=== PATIENT | female | born 1955 | race Hispanic/Latino ===

== ENCOUNTER 2017-05-05 10:21 | Emergency (ER) | payer MEDICARE ==
[~2017-05-05] VITALS: Ht 144.8 cm; Wt 44.0 kg
[~2017-05-05 10:21] MED LIST: ANTIVERT25 MG PO; ASPIRIN325 MG PO; CLONAZEPAM0.5 MG PO; FENOFIBRATE145 MG PO; LEVOTHYROXINE50 MCG PO; LOSARTAN POTASS25 MG PO; METOPROLOL SUCC50 MG PO; OMEPRAZOLE40 MG PO; PANTOPRAZOLE SO40 MG PO; PRAVASTATIN SOD40 MG PO; SIMVASTATIN40 MG PO
[2017-05-05] MEDS ORDERED: DEXTROSE 50% SYRINGE 50 ML IV ONE (12:02)
[2017-05-05] MEDS ORDERED: ASPIRIN 81 MG CHEW TAB PO ONE (13:45)
[2017-05-05 14:10] LABS: BASOPHILS % 0.5 % (0.0-1.0); EOSINOPHILS % 0.2 % (0.0-6.0); HEMATOCRIT 33.8 % (34.2-44.1); HEMOGLOBIN 11.5 g/dL (12.0-16.0); LYMPHOCYTES # (AUTO) 1.7 (1.0-3.2); LYMPHOCYTES % 29.3 % (18.0-39.1); MEAN CORPUSCULAR HEMOGLOBIN 30.4 pg (28-32); MEAN CORPUSCULAR VOLUME 89.4 fL (81-99); MONOCYTES # (AUTO) 0.3 (0.2-0.8); MONOCYTES % 4.2 % (4.4-11.3); NEUTROPHILS # (AUTO) 3.9 (2.1-6.9); NEUTROPHILS % 65.3 % (38.7-80.0); PLATELET COUNT 308 x10e3/uL (140-360); RED BLOOD COUNT 3.78 x10e6/uL (3.6-5.1); RED CELL DISTRIBUTION WIDTH 13.6 % (11.7-14.4)
[2017-05-05 14:19] LABS: INR 1.03; PROTHROMBIN TIME 12.7 seconds (11.9-14.5)
[2017-05-05 14:20] LABS: PARTIAL THROMBOPLASTIN TIME 27.7 seconds (23.8-35.5)
[2017-05-05 14:26] LABS: ALANINE AMINOTRANSFERASE 16 IU/L (0-55); ALBUMIN 4.1 g/dL (3.5-5.0); ALBUMIN/GLOBULIN RATIO 1.1 (0.8-2.0); ALKALINE PHOSPHATASE 100 IU/L (40-150); ANION GAP 12.8 mmol/L (8-16); BLOOD UREA NITROGEN 14 mg/dL (7-26); BUN/CREATININE RATIO 19 (6-25); CALCIUM 9.5 mg/dL (8.4-10.2); CARBON DIOXIDE 25 mmol/L (22-29); CHLORIDE 108 mmol/L (98-107); CREATINE KINASE 76 IU/L (29-168); CREATININE, SERUM 0.72 mg/dL (0.57-1.11); EST GLOMERULAR FILTRATION RATE > 60 ML/MIN (60-); GLUCOSE 94 mg/dL (74-118); MAGNESIUM 1.8 MG/DL (1.3-2.1); POTASSIUM 3.8 mmol/L (3.5-5.1); SODIUM 142 mmol/L (136-145)
--- NOTE | 2017-05-05 14:29 | Diagnostic Imaging Report ---
PROCEDURE: A single AP view of the chest. COMPARISON: Portable chest 11/24/2015. INDICATIONS: SYNCOPE FINDINGS: Lines/tubes: None. Lungs: The lungs are well inflated and clear. There is no evidence of pneumonia or pulmonary edema. Pleura: There is no pleural effusion or pneumothorax. Heart and mediastinum: The heart and the mediastinum are unremarkable. Bones: No acute bony abnormality. Degenerative changes of the thoracic spine. IMPRESSION: No acute radiographic abnormality. Dictated by: Alok Trevino M.D. on 05/05/2017 at 14:28 Electronically approved by: Alok Trevino M.D. on 05/05/2017 at 14:28
--- NOTE | 2017-05-05 16:39 | Diagnostic Imaging Report ---
Examination: CT BRAIN WITHOUT CONTRAST History:Right arm and ear tightness. Comparison studies:Head CT performed November 24, 2015 Technique: Axial images were obtained from the skull base to the vertex. Coronal and sagittal images reconstructed from the axial data. Intravenous contrast: None Findings: Scalp: No abnormalities. Bones: No fractures, blastic or lytic lesions. Brain sulci: Unchanged mild volume loss for age. Ventricles: Normal in size and configuration. No hydrocephalus. Extra-axial space: No abnormalities. Parenchyma: No abnormal densities. No masses, hemorrhage, or acute or chronic cortical based vascular insults. Sellar/suprasellar region: No abnormalities. Craniocervical junction: Patent foramen magnum. No Chiari one malformation. Incidental findings: None. Impression: No new or acute intracranial abnormalities. No change from prior head CT performed November 24, 2015. Signed by: Dr. Chaya Meraz M.D. on 05/05/2017 4:35 PM
[2017-05-05 19:22] LABS: LYMPHOCYTES % (MANUAL) 22 % (19-48); MONOCYTES % (MANUAL) 2 % (3.4-9.0); NEUTROPHILS % (MANUAL) 75 % (40-74); PLATELET ESTIMATE ADEQUATE; PLATELET MORPHOLOGY COMMENT NORMAL; RBC MORPHOLOGY COMMENT NORMAL
[2017-05-05 20:12] VITALS: BP 170/71
== END 2017-05-05 20:23 | disposition home or self-care (01) ==
LOC: ER 10:21
DX: R55 Syncope and collapse (principal)
CPT/HCPCS: 36415; 70450; 71045; 80053; 82550; 82553; 83735; 83880; 84484; 85025; 85610; 85730; 93005; 99284; J7799

== ENCOUNTER 2019-10-09 15:16 | Emergency (ER) | payer MEDICARE ==
[~2019-10-09] VITALS: Ht 144.8 cm; Wt 49.9 kg
--- NOTE | 2019-10-09 15:54 | Emergency Department Note ---
History of Present Illnes History of Present Illness History of Present Illness This is a 63 year old female . Historian: Patient Arrival Mode: Car Director Of Recruitment And Admissions Required: No Onset (how long ago): day(s) (3 days of weakness, tired, over worked no cp mild sob no fever no chills no loss of taste or smell no exposure to COVID pos) Location: Pt is concerned about her Oxygen levels Radiation: Reports non-radiation Severity: mild Onset quality: gradual Duration (how long): day(s) (3) Timing of current episode: constant Progression: unchanged Chronicity: new Context: Denies recent illness, Denies recent surgery, Denies recent immobilization, Denies recent travel, Denies trauma/injury, Denies new medications, Denies hx of DVT/PE, Denies non-compliance w/ medications, Denies other Relieving factors: none Exacerbating factors: none Associated symptoms: Reports denies other symptoms Treatments prior to arrival: none Risk factors: no hx of DVT or PE no recent travel or trips no leg swelling Past Medical/Family History Physician Review I have reviewed the patient's past medical and family history. Any updates have been documented here. Past Medical History Recent Fever: No Clinical Suspicion of Infectio: No New/Unexplained Change in Ment: No Past Medical History: Hypertension Other Medical History: HYPERLIPIDEMIA ANEMIA FATTY LIVER ARTHITHEROSIS Other Surgery: Social History Smoking Cessation: Never Smoker Alcohol Use: None Any Illegal Drug Use: No Other Last Tetanus: OOD Review of Systems Review of Systems Constitutional: Denies diaphoresis, Denies fever, Denies malaise Cardiovascular: Reports no symptoms Respiratory: Reports as per HPI Review of other systems: All other systems negative Physical Exam Related Data Allergies: Coded Allergies: codeine (Verified Allergy, Unknown, 05/05/17) enalapril (Verified Allergy, Unknown, 05/05/17) metoclopramide (Verified Allergy, Unknown, WEAKNESS, ANXIETY, 05/05/17) shellfish derived (Verified Allergy, Unknown, 05/05/17) Vital signs reviewed: Yes Physical Exam CONSTITUTIONAL Constitutional: Present well-developed HENT HENT: Present normocephalic EYES Eyes: Reports conjunctivae normal NECK Neck: Present supple PULMONARY Pulmonary: Present breath sounds normal CARDIOVASCULAR Cardiovascular: Present regular rhythm GASTROINTESTINAL Abdominal: Present soft GENITOURINARY SKIN Skin: Present warm MUSCULOSKELETAL Musculoskeletal: Absent edema NEUROLOGICAL Neurological: Present alert, Present oriented x 3 PSYCHOLOGICAL Psychological: Present mood/affect normal Results Laboratory Laboratory CBC CMP Normal D Dimer Trop Normal Lab results reviewed: Yes Imaging Imaging results reviewed: Yes Impressions CXRAY negative Procedures 12 Lead ECG Interpretation ECG Interpretation : ECG: ECG 1 Director Of Recruitment And Admissions: Interpreted by ED physician Date: Oct 09, 2019 Time: 15:42 Prior ECG tracings: reviewed Rhythm: sinus rhythm Rate: normal QRS axis: normal ST segments normal: Yes T waves normal: Yes Clinical Impression: normal ECG Clinical Decision Tools HEART Score HEART Score: HEART Score Response (Comments) Value History Slightly suspicious 0 EKG Normal 0 Age 45 - 65 1 Risk factors 1 or 2 risk factors 1 Troponin 1-3x normal limit Total 2 Assessment & Plan Medical Decision Making MDM PE, ACS, COVID, CHF, Anemia, Thyroid diseas Reassessment Reassessment Pt felt the same 3 days of symptoms Assessment & Plan Final Impression: (1) Dyspnea Depart Disposition: HOME, SELF-halfway Meds Reported Medications Meclizine Hcl (ANTIVERT) 25 Mg Tablet, 25 MG PO Q8H 11/24/15 Aspirin (ASPIRIN) 325 Mg Tablet, 325 MG PO DAILY, TAB 11/24/15 Levothyroxine Sodium (LEVOTHYROXINE SODIUM) 50 Mcg Tablet, 50 MCG PO DAILY, #30 TAB 11/24/15 Pravastatin Sodium (PRAVASTATIN SODIUM) 40 Mg Tablet, 40 MG PO DAILY 11/24/15 Fenofibrate Nanocrystallized (FENOFIBRATE) 145 Mg Tablet, 160 MG PO DAILY 11/24/15 Pantoprazole Sodium* (PROTONIX) 40 Mg Tablet.dr, 40 MG PO ACB, TAB 11/24/15 Omeprazole (OMEPRAZOLE) 40 Mg Capsule.dr, 40 MG PO DAILY 04/01/14 Simvastatin (SIMVASTATIN) 40 Mg Tablet, 40 MG PO DAILY, #30 TAB 04/01/14 Clonazepam (CLONAZEPAM) 0.5 Mg Tablet, 0.5 MG PO PRN for ANXIETY, TAB 04/01/14 Metoprolol Succinate (METOPROLOL SUCCINATE) 50 Mg Tab.er.24h, 50 MG PO DAILY, MG 04/01/14 Losartan Potassium (LOSARTAN POTASSIUM) 25 Mg Tablet, 50 MG PO HS 04/01/14 PETER VERONICA MD Oct 09, 2019 15:46
--- NOTE | 2019-10-09 17:27 | Diagnostic Imaging Report ---
EXAMINATION: CXR 2 VIEW - HOPD INDICATION: Shortness of breath COMPARISON: None FINDINGS: PA and lateral views TUBES and LINES: None. . LUNGS/PLEURA: Lungs are well inflated. There is no evidence of pneumonia or pulmonary edema.. There is no pleural effusion or pneumothorax. HEART AND MEDIASTINUM: The cardiomediastinal silhouette is unremarkable. BONES AND SOFT TISSUES: No acute osseous lesion. Soft tissues are unremarkable. UPPER ABDOMEN: No free air under the diaphragm. IMPRESSION: No acute thoracic abnormality. Signed by: Drake Sargent MD on 10/09/2019 5:24 PM
[2019-10-09 19:30] VITALS: BP 160/63
== END 2019-10-09 17:57 | disposition home or self-care (01) ==
LOC: FSED 16:10
DX: R06.00 Dyspnea, unspecified (principal); R53.1 Weakness; I10 Essential (primary) hypertension; E78.5 Hyperlipidemia, unspecified; D64.9 Anemia, unspecified
CPT/HCPCS: 71046; 80053; 84484; 85025; 85379; 93005; 99283

== ENCOUNTER 2020-12-27 14:19 | Emergency (ER) | payer MEDICARE ==
[~2020-12-27] VITALS: Ht 144.8 cm; Wt 49.9 kg
== END 2020-12-27 16:21 | disposition home or self-care (01) ==
LOC: FSED 14:51
DX: S20.222A Contusion of left back wall of thorax, initial encounter (principal); M79.10 Myalgia, unspecified site; W22.01XA Walked into wall, initial encounter; Y93.01 Activity, walking, marching and hiking; Y92.008 Other place in unspecified non-institutional (private) residence as the place of occurrence of the external cause; H83.2X1 Labyrinthine dysfunction, right ear; I10 Essential (primary) hypertension; E78.5 Hyperlipidemia, unspecified; E03.9 Hypothyroidism, unspecified; I25.10 Atherosclerotic heart disease of native coronary artery without angina pectoris; F41.9 Anxiety disorder, unspecified
CPT/HCPCS: 99283

== ENCOUNTER 2021-03-05 21:04 | Emergency (ER) | payer MEDICARE ==
[~2021-03-05] VITALS: Ht 144.8 cm; Wt 46.7 kg
[2021-03-05] MEDS ORDERED: AUGMENTIN 875-1 EACH PO (21:30)
[2021-03-05 21:35] VITALS: BP 199/110
== END 2021-03-05 21:35 | disposition home or self-care (01) ==
LOC: FSED 21:30
DX: R30.0 Dysuria (principal); N39.0 Urinary tract infection, site not specified; R00.2 Palpitations; I10 Essential (primary) hypertension; I25.10 Atherosclerotic heart disease of native coronary artery without angina pectoris; E78.5 Hyperlipidemia, unspecified; F41.9 Anxiety disorder, unspecified; D64.9 Anemia, unspecified
CPT/HCPCS: 81003; 99282

== ENCOUNTER → 2021-06-25 | Outpatient (CLI) | payer MEDICARE ==
[~2021-06-25] MED LIST changes: +AUGMENTIN 875-1 EACH PO
== END ==
LOC: US 14:19
PROVIDERS: ATTEND Nurse Practitioner Gerontology
DX: N30.01 Acute cystitis with hematuria (principal)
CPT/HCPCS: 76770

== ENCOUNTER 2021-12-17 18:11 | Emergency (ER) | payer MEDICARE ==
[~2021-12-17] VITALS: Ht 144.8 cm; Wt 49.9 kg
[~2021-12-17 18:11] MED LIST changes: +BACTRIM DS TAB1 EACH PO; +CEPHALEXIN500 MG PO; +CORTIZONE-1028 G1 TOP; +LMX 45 G1 TOP
[2021-12-17] MEDS ORDERED: CEFDINIR300 MG PO (20:51)
== END 2021-12-17 21:15 | disposition home or self-care (01) ==
LOC: FSED 18:17
DX: R10.32 Left lower quadrant pain (principal); R10.31 Right lower quadrant pain; I10 Essential (primary) hypertension; E78.5 Hyperlipidemia, unspecified; Z88.8 Allergy status to other drugs, medicaments and biological substances; Z88.5 Allergy status to narcotic agent; Z91.013 Allergy to seafood
CPT/HCPCS: 74176; 80048; 80076; 81003; 85025; 99284

== ENCOUNTER 2021-12-28 10:42 | Emergency (ER) | payer MEDICARE, OTHER ==
[~2021-12-28] VITALS: Ht 144.8 cm; Wt 47.4 kg
[~2021-12-28 10:42] MED LIST changes: +CEFDINIR300 MG PO
[2021-12-28] MEDS ORDERED: TRAMADOL HCL 50 MG TAB PO STA (11:41)
[2021-12-28] MEDS ORDERED: ACETAMINOPHEN 325 MG TAB PO STA (12:17)
[2021-12-28] MEDS ORDERED: TRAMADOL HCL 50 MG TAB ONE (12:18)
[2021-12-28] MEDS ORDERED: ACETAMINOPHEN 325 MG TAB ONE (12:20)
== END 2021-12-28 13:02 | disposition home or self-care (01) ==
LOC: FSED 11:50
DX: S32.2XXA Fracture of coccyx, initial encounter for closed fracture (principal); W18.39XA Other fall on same level, initial encounter; Y93.01 Activity, walking, marching and hiking; Y92.89 Other specified places as the place of occurrence of the external cause; E78.5 Hyperlipidemia, unspecified; I25.10 Atherosclerotic heart disease of native coronary artery without angina pectoris; F41.9 Anxiety disorder, unspecified
CPT/HCPCS: 72220; 99283

== ENCOUNTER 2022-05-13 13:46 | Emergency (ER) | payer MEDICARE ==
[~2022-05-13] VITALS: Ht 144.8 cm; Wt 47.2 kg
[2022-05-13 15:52] LABS: CLARITY,URINE CLEAR (CLEAR); COLOR,URINE YELLOW (YELLOW)
[2022-05-13 15:53] LABS: KETONES,URINE NEGATIVE (NEGATIVE); LEUKOCYTE ESTERASE ,URINE SMALL (NEGATIVE); NITRITE,URINE POSITIVE (NEGATIVE); PROTEIN,URINE DIPSTICK NEGATIVE (NEGATIVE); URINE UROBILINOGEN 0.2 mg/dL (0.2 - 1)
[2022-05-13 16:01] LABS: BACTERIA,URINE MANY /HPF; EPITHELIAL CELLS,URINE FEW /LPF
[2022-05-13] MEDS ORDERED: CEFDINIR300 MG PO (16:20)
== END 2022-05-13 16:28 | disposition home or self-care (01) ==
LOC: ER 14:04
DX: R10.30 Lower abdominal pain, unspecified (principal); N39.0 Urinary tract infection, site not specified; I10 Essential (primary) hypertension; I25.10 Atherosclerotic heart disease of native coronary artery without angina pectoris; E78.5 Hyperlipidemia, unspecified; D64.9 Anemia, unspecified; F41.9 Anxiety disorder, unspecified
CPT/HCPCS: 81001; 87086; 87186; 99282

== ENCOUNTER → 2023-04-02 | Outpatient (REF) | payer MEDICARE ==
[~2023-04-02] MED LIST changes: +ASPIRIN EC81 MG PO; +METOPROLOL SUCC25 MG PO; +NITROGLYCERIN0.4 MG SL
== END ==
LOC: MAMMO 13:48
PROVIDERS: ATTEND Family Medicine
DX: Z12.31 Encounter for screening mammogram for malignant neoplasm of breast (principal)
CPT/HCPCS: 77067

== ENCOUNTER → 2023-07-23 | Day surgery (SDC) | payer MEDICARE ==
[2023-07-17 16:17] LABS: BASOPHILS % 0.5 % (0.0-1.0); EOSINOPHILS # (AUTO) 0.2 (0.0-0.4); EOSINOPHILS % 2.3 % (0.0-6.0); HEMATOCRIT 33.8 % (34.2-44.1); HEMOGLOBIN 11.2 g/dL (12.0-16.0); LYMPHOCYTES # (AUTO) 2.4 (1.0-3.2); MEAN CORPUSCULAR HEMOGLOBIN 29.9 pg (28-32); MEAN CORPUSCULAR HGB CONC 33.1 g/dL (31-35); MEAN CORPUSCULAR VOLUME 90.1 fL (81-99); MONOCYTES # (AUTO) 0.4 (0.2-0.8); MONOCYTES % 4.4 % (4.4-11.3); NEUTROPHILS # (AUTO) 5.1 (2.1-6.9); NEUTROPHILS % 62.4 % (38.7-80.0); PLATELET COUNT 323 x10e3/uL (140-360); RED BLOOD COUNT 3.75 x10e6/uL (3.6-5.1); RED CELL DISTRIBUTION WIDTH 14.5 % (11.7-14.4); WHITE BLOOD COUNT 8.12 x10e3/uL (4.8-10.8)
[~2023-07-23] MED LIST changes: +ALBUTEROL INH; +BUSPIRONE PO; +DEXMEDETOMIDINE HCL 200 MCG/2 ML VIAL ONE; +EPHEDRINE SULFATE INJ 50 MG/ML VIAL ONE; +FAMOTIDINE20 MG PO; +FENTANYL CITRATE/PF 100MCG/2 ML INJ ONE; +INHALER INH; +LIDOCAINE HCL 2% LOCAL INJ 5 ML SDV VIAL INJ ONE; +LINZESS145 MCG PO; +NASAL SPRAY30 M1; +PROPOFOL IV EMULSION 10 MG/ML 20 ML VIAL ONE
[2023-07-23] MEDS: LACTATED RINGER'S 1,000 ML ONE (07:52)
[2023-07-23 09:14] VITALS: TEMP 98.3
[2023-07-23 09:45] VITALS: BP 145/73; PULSE 78; RESP 16; O2SAT 99
== END | disposition home or self-care (01) ==
LOC: OR 06:34
PROVIDERS: ATTEND Internal Medicine Gastroenterology
DX: K29.50 Unspecified chronic gastritis without bleeding (principal); D12.3 Benign neoplasm of transverse colon; K31.89 Other diseases of stomach and duodenum; K31.A12 Gastric intestinal metaplasia without dysplasia, involving the body (corpus); K44.9 Diaphragmatic hernia without obstruction or gangrene; K21.9 Gastro-esophageal reflux disease without esophagitis; K64.8 Other hemorrhoids; D64.9 Anemia, unspecified; Z78.9 Other specified health status; I10 Essential (primary) hypertension; I25.2 Old myocardial infarction; E78.5 Hyperlipidemia, unspecified; J45.909 Unspecified asthma, uncomplicated; F41.9 Anxiety disorder, unspecified; Z88.8 Allergy status to other drugs, medicaments and biological substances; Z88.6 Allergy status to analgesic agent; Z88.1 Allergy status to other antibiotic agents; Z91.041 Radiographic dye allergy status; Z01.810 Encounter for preprocedural cardiovascular examination; Z01.812 Encounter for preprocedural laboratory examination; Z79.82 Long term (current) use of aspirin; Z79.899 Other long term (current) drug therapy; Z68.1 Body mass index [BMI] 19.9 or less, adult; Z86.73 Personal history of transient ischemic attack (TIA), and cerebral infarction without residual deficits
CPT/HCPCS: 36415; 43239; 45385; 85025; 88305; 88342; 93005; J2001; J2704; J3010; J7121

== ENCOUNTER 2024-11-03 16:59 | Emergency (ER) | payer MEDICARE ==
[~2024-11-03] VITALS: Ht 144.8 cm; Wt 41.9 kg
[~2024-11-03 16:59] MED LIST changes: -DEXMEDETOMIDINE HCL 200 MCG/2 ML VIAL ONE; -EPHEDRINE SULFATE INJ 50 MG/ML VIAL ONE; -FENTANYL CITRATE/PF 100MCG/2 ML INJ ONE; -LIDOCAINE HCL 2% LOCAL INJ 5 ML SDV VIAL INJ ONE; -PROPOFOL IV EMULSION 10 MG/ML 20 ML VIAL ONE
[2024-11-03 21:20] VITALS: BP 200/88; PULSE 80; RESP 18; TEMP 98
[2024-11-03 21:30] VITALS: PULSE 80; RESP 18; TEMP 98; O2SAT 99
== END 2024-11-03 21:31 | disposition home or self-care (01) ==
LOC: EDBD 17:26 → FSED 17:26
DX: M79.622 Pain in left upper arm (principal); R07.89 Other chest pain; I10 Essential (primary) hypertension; I25.10 Atherosclerotic heart disease of native coronary artery without angina pectoris; E78.5 Hyperlipidemia, unspecified; D64.9 Anemia, unspecified; F41.9 Anxiety disorder, unspecified; R94.31 Abnormal electrocardiogram [ECG] [EKG]; Z86.73 Personal history of transient ischemic attack (TIA), and cerebral infarction without residual deficits
CPT/HCPCS: 71046; 80048; 84484; 85025; 93005; 99283